=== PATIENT | female | born 1990 ===

== ENCOUNTER 2019-08-26 05:53 | Inpatient (IN) | payer MEDICAID ==
[~2019-08-26] VITALS: Ht 170.2 cm; Wt 68.0 kg
[2019-08-26] MEDS ORDERED: Acetaminophen 500mg (ES) tab ORAL ONE (06:15)
--- NOTE | 2019-08-26 06:17 | Emergency Room Report ---
History of Present Illness General Chief Complaint: Flu Like Symptoms Source: Patient Present Illness HPI 29-year-old female with no past medical history. She presents with chief complaint of fever, abdominal pain, sore throat, nausea. Onset for the last 2 days. Fever was very high to the point that she became delirious. Nausea but no vomiting. She is generalized body pain. No trauma. No cough. Has not taken anything for this. She had a previous appendectomy Allergies: Coded Allergies: No Known Allergies (Unverified , 08/26/19) Patient History Past Medical History: none, see triage record, old chart reviewed Past Surgical History: appy Pertinent Family History: none Social History: Denies: smoking Last Menstrual Period: 08/10/19 Now: No Immunizations: other Reviewed Nursing Documentation: PMH: Agreed; PSxH: Agreed Nursing Documentation-PMH Past Medical History: No Stated History Review of Systems Constitutional: Reports: fever, malaise, weakness Eye: Denies: eye pain, blurred vision ENT: Denies: ear pain, nose congestion, throat swelling Respiratory: Denies: cough, shortness of breath Cardiovascular: Denies: chest pain, palpitations Gastrointestinal: Reports: abdominal pain, nausea; Denies: diarrhea, vomiting Musculoskeletal: Denies: back pain, joint pain Skin: Denies: rash Neurological: Denies: headache, numbness Endocrine: Denies: increased thirst, increased urine Hematologic/Lymphatic: Denies: easy bruising All Other Systems: negative except mentioned in HPI Physical Exam Vital Signs Date Time Temp Pulse Resp B/P (MAP) Pulse Ox O2 Delivery O2 Flow Rate FiO2 08/26/19 05:47 98.2 95 16 87/58 (68) 100 Room Air Vitals with hypotension Sp02 EP Interpretation: reviewed, normal General Appearance: well appearing, no apparent distress, alert Head: normocephalic, atraumatic Eyes: bilateral eye PERRL, bilateral eye EOMI ENT: hearing grossly normal, normal pharynx Neck: full range of motion, supple, no meningismus Respiratory: chest non-tender, lungs clear, normal breath sounds Cardiovascular #1: regular rate, rhythm, no murmur Gastrointestinal: normal bowel sounds, no mass, no organomegaly, no bruit, non- distended, tenderness - Right lower quadrant Musculoskeletal: back normal, gait/station normal, normal range of motion Psychiatric: mood/affect normal Medical Decision Making Diagnostic Impression: Primary Impression: Influenza-like symptoms ER Course This patient presents with flulike illness. Labs and IV fluids given. Because of abdominal pain, will get CT scan. I will send this patient out to Dr. Carrero for final disposition. Last Vital Signs Date Time Temp Pulse Resp B/P (MAP) Pulse Ox O2 Delivery O2 Flow Rate FiO2 08/26/19 05:47 98.2 95 16 87/58 (68) 100 Room Air Status: improved Rigo Becerra MD Aug 26, 2019 06:17
[2019-08-26] MEDS ORDERED: Ketorolac 30mg Inj IV ONE (06:30)
--- NOTE | 2019-08-26 06:30 | NUR ---
ED Nurse Note: pt presents to ED via EMS arrival for flu-like symptoms. pt reports feeling nauseous for 2 days. she also reports feeling hot to touch then cold. pt also reports "hallucinating from the fever." pt rates her body pain a 5/10 that is diffuse over her entire body that she describes as "muscle pains." pt denies getting a flu shot this year and has never had this happen to her in the past
[2019-08-26 06:35] LABS: HEMATOCRIT 35.3 % (37.0-47.0); HEMOGLOBIN 12.3 G/DL (12.0-16.0); MEAN CORPUSCULAR VOLUME 92 FL (80-99); PLATELET COUNT 125 K/UL (150-450); RED BLOOD COUNT 3.85 M/UL (4.20-5.40); RED CELL DISTRIBUTION WIDTH 10.7 % (11.6-14.8); WHITE BLOOD COUNT 7.8 K/UL (4.8-10.8)
[2019-08-26 06:41] VITALS: BP 87/58
[2019-08-26 06:43] LABS: APPEARANCE,URINE CLEAR; BILIRUBIN, URINE NEGATIVE (NEGATIVE); COLOR,URINE YELLOW; GLUCOSE, URINE (UA) NEGATIVE (NEGATIVE); KETONES,URINE NEGATIVE (NEGATIVE); LEUKOCYTE ESTERASE ,URINE NEGATIVE (NEGATIVE); NITRITE,URINE NEGATIVE (NEGATIVE); PH,URINE 7 (4.5-8.0); PROTEIN,URINE NEGATIVE (NEGATIVE); UROBILINOGEN,URINE NORMAL MG/DL (0.0-1.0)
--- NOTE | 2019-08-26 06:57 | NUR ---
ED Nurse Note: pt being transported to CT via wheelchair. pt is stable and does not appear to be in any distress at this moment. BP is 91/47, pt was transported with the 2 L of NS
[2019-08-26 07:06] LABS: ALANINE AMINOTRANSFERASE 25 U/L (12-78); ALBUMIN 3.6 G/DL (3.4-5.0); ALBUMIN/GLOBULIN RATIO 1.6 (1.0-2.7); ALKALINE PHOSPHATASE 44 U/L (46-116); ANION GAP 8 mmol/L (5-15); ASPARTATE AMINO TRANSFERASE 18 U/L (15-37); BILIRUBIN,TOTAL 0.3 MG/DL (0.2-1.0); BLOOD UREA NITROGEN 17 mg/dL (7-18); CALCIUM 8.2 MG/DL (8.5-10.1); CARBON DIOXIDE 26 MMOL/L (21-32); CHLORIDE 103 MMOL/L (98-107); CREATININE 0.6 MG/DL (0.55-1.30); POTASSIUM 3.8 MMOL/L (3.5-5.1); SODIUM 137 MMOL/L (136-145)
--- NOTE | 2019-08-26 07:11 | NUR ---
HAND-OFF: Report given to Kristopher Giordano RN. pt is still in CT
--- NOTE | 2019-08-26 07:16 | NUR ---
ED Nurse Note: pt is in CT.
--- NOTE | 2019-08-26 07:25 | NUR ---
ED Nurse Note: pt came back from CT in stable condition.
--- NOTE | 2019-08-26 07:35 | NUR ---
ED Nurse Note: pt ambulated to bathroom with steady gait.
--- NOTE | 2019-08-26 07:39 | NUR ---
ED Nurse Note: BP 78/52mmHg noted. ERMD made aware. pt still geting iv fluid. will continued to monitor.
[2019-08-26 07:43] VITALS: BP 78/52
--- NOTE | 2019-08-26 08:05 | Diagnostic Imaging Report ---
Indication: Abdominal pain Technique: Continuous helical transaxial imaging of the abdomen and pelvis was obtained from the lung bases to the pubic symphysis. No intravenous contrast was administered. Coronal 2-D reformats were also obtained. Automatic Exposure Control was utilized. Total Dose length Product (DLP): 921.[address] Dose Index Volume (CTDIvol): 15.8 mGy Comparison: none Findings: Mild fluid filled and distended loops of small bowel noted throughout the abdomen. Findings could be due to ileus/enteritis. Bowel obstruction is not excluded. Study is limited as obtained on without IV and oral contrast material. Suggest repeating the exam or obtaining small bowel series. Correlate clinically. There could be an internal hernia present on the left side as there is some mass effect and swirling of the mesenteric vessels. There is no free fluid. There is no pneumatosis or free air. Moderate feces noted within the colon. Urinary bladder is mildly distended. No hydronephrosis seen. Solid organ evaluation limited on this study. Gallbladder is unremarkable. The lung bases are clear. Bilateral breast implants noted. IMPRESSION: Mild distention of small bowel noted within the abdomen. Consider enteritis or ileus. Bowel obstruction not excluded. Question of an internal hernia in the left side of the abdomen as described above. Current study limited in evaluation due to the nonadministration of IV and oral contrast material. [facility] has communicated the preliminary results to the Emergency Department. Their findings are largely concordant with this report. The CT scanner at [facility] is accredited by the [employer] and the scans are performed using dose optimization techniques as appropriate to a performed exam including Automatic Exposure control.
--- NOTE | 2019-08-26 09:34 | NUR ---
ED Nurse Note: ERMD at bedside discussing further plans.
[2019-08-26 09:50] VITALS: BP 87/54
--- NOTE | 2019-08-26 09:53 | Emergency Room Report ---
Physical Exam Please see addenda note attached to Dr. Becerra's note. Vital Signs Date Time Temp Pulse Resp B/P (MAP) Pulse Ox O2 Delivery O2 Flow Rate FiO2 08/26/19 05:47 98.2 95 16 87/58 (68) 100 Room Air Sp02 EP Interpretation: reviewed, normal General Appearance: well appearing, no apparent distress, alert, GCS 15, non- toxic Head: normocephalic, atraumatic Eyes: bilateral eye normal inspection, bilateral eye PERRL, bilateral eye EOMI ENT: moist mucus membranes Neck: full range of motion, supple Respiratory: lungs clear, normal breath sounds Cardiovascular #1: regular rate, rhythm, no edema Cardiovascular #2: 2+ radial (R) Gastrointestinal: normal bowel sounds, soft, no mass, non-distended, no guarding, no rebound, tenderness - minimal Genitourinary: no CVA tenderness Musculoskeletal: back normal, digits/nails normal, gait/station normal, normal range of motion Neurologic: alert, oriented x3, grossly normal Psychiatric: mood/affect normal Skin: no rash, warm/dry Medical Decision Making Diagnostic Impression: Primary Impression: Small bowel obstruction Additional Impressions: Constipation Qualified Codes: K59.00 - Constipation, unspecified Hypotension Qualified Codes: I95.9 - Hypotension, unspecified ER Course Patient signed out to me by Dr. Becerra pending labs and CT. Nonsurgical exam. Concern over intermittent hypotension. Patient ambulatory without dizziness. She is not tachycardic. Labs with normal white count. Left shift. CMP normal. TSH normal. Patient reports that several years ago she was evaluated for abdominal pain and told she had some mesenteric abnormality. Surgery was offered for diagnostic purposes. At that time she declined. No definitive diagnosis was made. Patient with continued intermittent hypotension however clinically stable during these episodes. No dizziness or weakness. In addition she was complaining about nausea and Zofran was repeated along with Pepcid. CT with question of small bowel obstruction. Also increased stool load. Patient reports long-standing history of intermittent constipation. Due to the CT scan findings and hypotension patient admitted for observation. Abdomen still soft. Patient evaluated by Dr. Sweeney. Surgical consultation requested of Dr. Gomez. Complaints of continued nausea and some increase in abdominal pain. Reglan and Benadryl ordered. Laboratory Tests Test 08/26/19 06:16 White Blood Count 7.8 K/UL (4.8-10.8) Red Blood Count 3.85 M/UL (4.20-5.40) L Hemoglobin 12.3 G/DL (12.0-16.0) Hematocrit 35.3 % (37.0-47.0) L Mean Corpuscular Volume 92 FL (80-99) Mean Corpuscular Hemoglobin 32.0 PG (27.0-31.0) H Mean Corpuscular Hemoglobin Concent 34.9 G/DL (32.0-36.0) Red Cell Distribution Width 10.7 % (11.6-14.8) L Platelet Count 125 K/UL (150-450) L Mean Platelet Volume 9.5 FL (6.5-10.1) Neutrophils (%) (Auto) % (45.0-75.0) Lymphocytes (%) (Auto) % (20.0-45.0) Monocytes (%) (Auto) % (1.0-10.0) Eosinophils (%) (Auto) % (0.0-3.0) Basophils (%) (Auto) % (0.0-2.0) Differential Total Cells Counted 100 Neutrophils % (Manual) 90 % (45-75) H Lymphocytes % (Manual) 6 % (20-45) L Monocytes % (Manual) 4 % (1-10) Eosinophils % (Manual) 0 % (0-3) Basophils % (Manual) 0 % (0-2) Band Neutrophils 0 % (0-8) Platelet Estimate Decreased L Platelet Morphology Normal Red Blood Cell Morphology Normal Urine Color Yellow Urine Appearance Clear Urine pH 7 (4.5-8.0) Urine Specific [place] 1.005 (1.005-1.035) Urine Protein Negative (NEGATIVE) Urine Glucose (UA) Negative (NEGATIVE) Urine Ketones Negative (NEGATIVE) Urine Blood Negative (NEGATIVE) Urine Nitrite Negative (NEGATIVE) Urine Bilirubin Negative (NEGATIVE) Urine Urobilinogen Normal MG/DL (0.0-1.0) Urine Leukocyte Esterase Negative (NEGATIVE) Urine HCG, Qualitative Negative (NEGATIVE) Sodium Level 137 MMOL/L (136-145) Potassium Level 3.8 MMOL/L (3.5-5.1) Chloride Level 103 MMOL/L (98-107) Carbon Dioxide Level 26 MMOL/L (21-32) Anion Gap 8 mmol/L (5-15) Blood Urea Nitrogen 17 mg/dL (7-18) Creatinine 0.6 MG/DL (0.55-1.30) Estimate Glomerular Filtration Rate > 60 mL/min (>60) Glucose Level 104 MG/DL (74-106) Calcium Level 8.2 MG/DL (8.5-10.1) L Total Bilirubin 0.3 MG/DL (0.2-1.0) Aspartate Amino Transferase (AST) 18 U/L (15-37) Alanine Aminotransferase (ALT) 25 U/L (12-78) Alkaline Phosphatase 44 U/L (46-116) L Total Protein 5.9 G/DL (6.4-8.2) L Albumin 3.6 G/DL (3.4-5.0) Globulin 2.3 g/dL Albumin/Globulin Ratio 1.6 (1.0-2.7) Thyroid Stimulating Hormone (TSH) 2.526 uiU/mL (0.358-3.740) Microbiology Date/Time Source Procedure Growth Status 08/26/19 06:16 Nasal Nares - Final Complete 08/26/19 06:16 Nasal Nares - Final Complete EKG Diagnostic Results Rate: normal Rhythm: NSR ST Segments: no acute changes Rhythm Strip Diag. Results EP Interpretation: yes Rhythm: NSR, no PVC's, no ectopy CT/MRI/US Diagnostic Results CT/MRI/US Diagnostic Results : Imaging Test Ordered: Abdomen and pelvis Impression Findings: Mild fluid filled and distended loops of small bowel noted throughout the abdomen. Findings could be due to ileus/enteritis. Bowel obstruction is not excluded. Study is limited as obtained on without IV and oral contrast material. Suggest repeating the exam or obtaining small bowel series. Correlate clinically. There could be an internal hernia present on the left side as there is some mass effect and swirling of the mesenteric vessels. There is no free fluid. There is no pneumatosis or free air. Moderate feces noted within the colon. Urinary bladder is mildly distended. No hydronephrosis seen. Solid organ evaluation limited on this study. Gallbladder is unremarkable. The lung bases are clear. Bilateral breast implants noted. IMPRESSION: Mild distention of small bowel noted within the abdomen. Consider enteritis or ileus.Bowel obstruction not excluded. Question of an internal hernia in the left side of the abdomen as described above. Last Vital Signs Date Time Temp Pulse Resp B/P (MAP) Pulse Ox O2 Delivery O2 Flow Rate FiO2 08/26/19 14:46 97.6 70 19 79/49 100 Room Air Status: improved Disposition: PLACE IN OBSERVATION Condition: Serious Referrals: NOT CHOSEN IPA/,REFERRING (PCP) Herber Carrero MD Aug 26, 2019 09:53
--- NOTE | 2019-08-26 10:23 | NUR ---
ED Nurse Note: pt stated it is ok to release her information to Tracy [phone], aunt. and DUSTIN [phone], Boyfriend.
[2019-08-26] MEDS ORDERED: NKM (10:34)
--- NOTE | 2019-08-26 10:44 | NUR ---
ED Nurse Note: BP 77/52mmHg reported to ERMD.
--- NOTE | 2019-08-26 13:31 | NUR ---
ED Nurse Note: pt c/o nausea and abdominal pain 05/08. reported to ERMD.
[2019-08-26 14:15] VITALS: BP 81/50
[2019-08-26] MEDS ORDERED: Metoclopramide 10mg/2ml Inj IVP ONE (14:15)
[2019-08-26] MEDS ORDERED: DiphenhydrAMINE 50mg/ml Inj IVP ONE (14:15)
--- NOTE | 2019-08-26 14:45 | NUR ---
ED Nurse Note: pt left unit with 1 phlebotomy services technician and 1 RN in stable condition. ERMD assessed pt right before pt left. pt stable but still low blood pressure. 79/54mmHg. KAYLEIGHD made aware.
--- NOTE | 2019-08-26 15:00 | NUR ---
NURSE NOTES: received patient report from marcin londono from er. per report patient started to ba nauseus, vomitting and flu like symptoms X days.patient came in via gurney. landcare officer initiated. vs taken and recorded. afebrile.patient is noted to be AOX4. patient denies pain as of this time. per patient comes and goes. pain is at the lower abdomen.skin is intact.belongings checked and signed by er nurse and myself. under the care of dr waite. will call md for admission orders.
--- NOTE | 2019-08-26 15:00 | NUR ---
ED Nurse Note: REPORT GIVEN TO LEON CHILDERS
[2019-08-26 15:34] VITALS: BP 77/50
--- NOTE | 2019-08-26 17:49 | Consultation ---
History of Present Illness General Date patient seen: Aug 26, 2019 Reason for Hospitalization: Flu Like Symptoms Present Illness HPI This is a 29-year-old female who presented to the emergency department at [facility] complaining of worsening abdominal pain and intermittent nausea. Patient furthermore complaining of flulike symptoms. Generalized weakness bone pains. Patient states that approximately 2 years ago she was hospitalized in [place] for abdominal discomfort after being on a plane flight. States that time they diagnosed her with a possible questionable mesenteric hernia and was planned for possible surgery but did not have it. States since she is intermittently had abdominal discomfort and intermittent nausea over the years. States that approximately 1 day ago began to feel abdominal discomfort cramping pain 10 out of 10 with intermittent nausea but no emesis and decided come in for evaluation. Passing flatus as of yesterday. Last bowel movement a few days ago and states that she suffers from chronic constipation and uses Dulcolax suppositories often to have a bowel movement every few days. CT with possible ileus versus potential bowel obstruction. Surgery called to evaluate and assist with care. Patient seen, patient evaluate , chart reviewed subjective fevers Allergies: Coded Allergies: No Known Allergies (Unverified , 08/26/19) Medication History Scheduled No Known Medications* (NKM - No Known Medications*), 0 ., (Reported) Patient History History Provided By: Patient Healthcare decision maker Resuscitation status Full Code Advanced Directive on File No Past Medical/Surgical History Past Medical/Surgical History: (1) Influenza-like symptoms (2) Constipation (3) Small bowel obstruction (4) Hypotension Review of Systems Review of Symptoms General ROS: no weight loss ++fever Psychological ROS: no depression or mood changes, no memory loss Ophthalmic ROS: no visual changes or eye irritation ENT ROS: no nasal congestion, hearing loss, dizziness Allergy and Immunology ROS: no allergic symptoms or urticaria Hematological and Lymphatic ROS: no swollen glands, unusual bleeding or bruising Endocrine ROS: no polyuria, polydipsia, weight changes, temperature intolerance Respiratory ROS: no cough, shortness of breath, or wheezing Cardiovascular ROS: no chest pain or dyspnea on exertion Gastrointestinal ROS: abdominal pain, bright red blood in stool. Musculoskeletal ROS: no myalgias or arthralgias Neurological ROS: no TIA or stroke symptoms Dermatological ROS: no new or changing skin lesions, rashes or pruritis Physical Exam Physical Exam General appearance: alert, cooperative, no distress, appears stated age Head: Normocephalic, without obvious abnormality, atraumatic Eyes: conjunctivae/corneas clear. PERRL, EOM's intact. Fundi benign Throat: Lips, mucosa, and tongue normal. Teeth and gums normal Neck: supple, symmetrical, trachea midline, no adenopathy, thyroid: not enlarged, symmetric, no tenderness/mass/nodules, no carotid bruit and no JVD Lungs: clear to auscultation bilaterally Heart: regular rate and rhythm, S1, S2 normal, no murmur, click, rub or gallop Abdomen: soft, non-tender. Bowel sounds normal. No masses, no organomegaly prior right lower quadrant open appendectomy McBurney's's incision well-healed Extremities: extremities normal, atraumatic, no cyanosis or edema Pulses: 2+ and symmetric Skin: Skin color, texture, turgor normal. No rashes or lesions Neurologic: Grossly normal Last 24 Hour Vital Signs Date Time Temp Pulse Resp B/P (MAP) Pulse Ox O2 Delivery O2 Flow Rate FiO2 08/26/19 16:00 69 08/26/19 16:00 Room Air 08/26/19 15:34 97.7 66 24 77/50 (59) 100 08/26/19 15:10 Room Air 08/26/19 14:46 97.6 70 19 79/49 100 Room Air 08/26/19 14:15 98.2 69 19 81/50 100 Room Air 08/26/19 09:50 98.0 68 17 87/54 100 Room Air 08/26/19 07:43 97.9 81 17 78/52 98 Room Air 08/26/19 07:10 99.2 08/26/19 07:10 99.2 08/26/19 06:41 99.2 16 87/58 100 Room Air 08/26/19 06:10 95 16 Room Air 08/26/19 05:47 98.2 95 16 87/58 (68) 100 Room Air Intake and Output 08/25/19 08/26/19 19:00 07:00 Intake Total 100 ml Balance 100 ml Intake Oral 100 ml Laboratory Tests Test 08/26/19 06:16 White Blood Count 7.8 K/UL (4.8-10.8) Red Blood Count 3.85 M/UL (4.20-5.40) L Hemoglobin 12.3 G/DL (12.0-16.0) Hematocrit 35.3 % (37.0-47.0) L Mean Corpuscular Volume 92 FL (80-99) Mean Corpuscular Hemoglobin 32.0 PG (27.0-31.0) H Mean Corpuscular Hemoglobin Concent 34.9 G/DL (32.0-36.0) Red Cell Distribution Width 10.7 % (11.6-14.8) L Platelet Count 125 K/UL (150-450) L Mean Platelet Volume 9.5 FL (6.5-10.1) Neutrophils (%) (Auto) % (45.0-75.0) Lymphocytes (%) (Auto) % (20.0-45.0) Monocytes (%) (Auto) % (1.0-10.0) Eosinophils (%) (Auto) % (0.0-3.0) Basophils (%) (Auto) % (0.0-2.0) Differential Total Cells Counted 100 Neutrophils % (Manual) 90 % (45-75) H Lymphocytes % (Manual) 6 % (20-45) L Monocytes % (Manual) 4 % (1-10) Eosinophils % (Manual) 0 % (0-3) Basophils % (Manual) 0 % (0-2) Band Neutrophils 0 % (0-8) Platelet Estimate Decreased L Platelet Morphology Normal Red Blood Cell Morphology Normal Urine Color Yellow Urine Appearance Clear Urine pH 7 (4.5-8.0) Urine Specific [place] 1.005 (1.005-1.035) Urine Protein Negative (NEGATIVE) Urine Glucose (UA) Negative (NEGATIVE) Urine Ketones Negative (NEGATIVE) Urine Blood Negative (NEGATIVE) Urine Nitrite Negative (NEGATIVE) Urine Bilirubin Negative (NEGATIVE) Urine Urobilinogen Normal MG/DL (0.0-1.0) Urine Leukocyte Esterase Negative (NEGATIVE) Urine HCG, Qualitative Negative (NEGATIVE) Sodium Level 137 MMOL/L (136-145) Potassium Level 3.8 MMOL/L (3.5-5.1) Chloride Level 103 MMOL/L (98-107) Carbon Dioxide Level 26 MMOL/L (21-32) Anion Gap 8 mmol/L (5-15) Blood Urea Nitrogen 17 mg/dL (7-18) Creatinine 0.6 MG/DL (0.55-1.30) Estimat Glomerular Filtration Rate > 60 mL/min (>60) Glucose Level 104 MG/DL (74-106) Calcium Level 8.2 MG/DL (8.5-10.1) L Total Bilirubin 0.3 MG/DL (0.2-1.0) Aspartate Amino Transf (AST/SGOT) 18 U/L (15-37) Alanine Aminotransferase (ALT/SGPT) 25 U/L (12-78) Alkaline Phosphatase 44 U/L (46-116) L Total Protein 5.9 G/DL (6.4-8.2) L Albumin 3.6 G/DL (3.4-5.0) Globulin 2.3 g/dL Albumin/Globulin Ratio 1.6 (1.0-2.7) Thyroid Stimulating Hormone (TSH) 2.526 uiU/mL (0.358-3.740) Microbiology Date/Time Source Procedure Growth Status 08/26/19 06:16 Nasal Nares - Final Complete 08/26/19 06:16 Nasal Nares - Final Complete Height (Feet): 5 Height (Inches): 7.00 Weight (Pounds): 150 Medications Current Medications Medications (Trade) Dose Ordered Sig/Cl Route PRN Reason Start Time Stop Time Status Last Admin Dose Admin Ondansetron HCl (Zofran) 4 mg Q6H PRN IVP Nausea & Vomiting 08/26/19 16:00 09/25/19 15:59 Sodium Chloride 1,000 ml @ 125 mls/hr Q8H IV 08/26/19 16:00 09/25/19 15:59 08/26/19 16:09 Assessment/Plan Problem List: (1) Small bowel obstruction Assessment & Plan: Mild fluid filled and distended loops of small bowel noted throughout the abdomen. Findings could be due to ileus/enteritis. Bowel obstruction is not excluded. Study is limited as obtained on without IV and oral contrast material. Suggest repeating the exam or obtaining small bowel series. Correlate clinically. There could be an internal hernia present on the left side as there is some mass effect and swirling of the mesenteric vessels. There is no free fluid. There is no pneumatosis or free air. Moderate feces noted within the colon. Urinary bladder is mildly distended. No hydronephrosis seen. Solid organ evaluation limited on this study. Gallbladder is unremarkable. The lung bases are clear. Bilateral breast implants noted. 29-year-old female with abdominal pain nausea and above CT findings. Patient with interesting history of potential mesenteric hernia diagnosed 2 years ago [place] but not have surgery. States that she is been dealing with intermittent abdominal discomfort. Over the past day significantly worse and came in for evaluation. No leukocytosis, shift, normal electrolytes. Abdominal exam benign. Given her history recommend upper GI small bowel series with contrast to evaluate bowel transit dynamically A.m. labs We will follow with recommendations Thank you for allowing me to participate in patient's care ICD Codes: K56.609 - Unspecified intestinal obstruction, unspecified as to partial versus complete obstruction SNOMED: 688920904 (2) Constipation ICD Codes: K59.00 - Constipation, unspecified SNOMED: [id number] Torsten Gomez Aug 26, 2019 17:49
--- NOTE | 2019-08-26 18:54 | NUR ---
NURSE NOTES: patient signed ama.per family member, they want to go to [facility] instead. risks of signing ama were explained but still patient and significant other insisted on signing.. property assessment monitor removed. IV line removed and bleeding was stopped. dr cordova and dr waite made aware.
--- NOTE | 2019-08-26 21:15 | History and Physical Report ---
DATE OF ADMISSION: 08/26/2019 REASON FOR ADMISSION: Abdominal pain. HISTORY OF PRESENT ILLNESS: This is a 29-year-old female presented with nausea, vomiting and abdominal pain of several days duration associated with some flu-like symptoms including aches, pain, and general malaise. The patient notes a similar episode approximately 2 years ago when she was in [place] after being on an airplane. She was diagnosed there with a mesenteric hernia and recommended for surgery but elected to be managed medically. Since that time, she has had intermittent episodes of abdominal pain and nausea but not of this severity. With cramping pain, she is describing started about a day ago. She has been passing gas but her last bowel movement was a couple of days previously although she has chronic constipation and uses suppositories on a regular basis. In the emergency room, she was noted to have a low blood pressure in the range of 75 systolic but the patient states her usual blood pressure is around 100 systolic, not more. She had a CAT scan of the abdomen that revealed possible ileus and hospitalization has been initiated. MEDICATIONS: None. ALLERGIES: None known. PAST MEDICAL HISTORY: Status post open appendectomy otherwise unremarkable. FAMILY HISTORY: Noncontributory. SOCIAL HISTORY: Denies smoking, alcohol, or substance abuse. REVIEW OF SYSTEMS: The patient's last menstrual cycle was approximately 2 weeks ago and was described as normal per her usual symptoms. A 10-point review of systems performed. All systems negative other than noted above. PHYSICAL EXAMINATION: GENERAL: She is awake and alert although somewhat sleepy stating she did not sleep much last night. She is nonorthostatic and is able to ambulate to the bathroom by herself. VITAL SIGNS: Blood pressure 77/50, pulse 66, respiratory rate 24, afebrile. Throughout the morning, her blood pressure has been in the range of 75 to 90 systolic. Oxygen saturation on room air 100%. HEENT: Conjunctivae pink. Oropharynx clear. Mucous membranes moist. NECK: Supple. Jugular venous pressure normal. LUNGS: Clear. CARDIAC: Regular rhythm and rate. Normal S1, S2 with no murmur, rub, or gallop. ABDOMEN: Soft, nontender. Bowel sounds are normal. There is no organomegaly. There is prior surgical site on the right lower quadrant that are healed. EXTREMITIES: Without edema. There is good perfusion of the digits. NEUROLOGIC: Nonfocal. LABORATORY AND DIAGNOSTIC DATA: White count 7.8, hemoglobin 12.3, platelet count normal. Chemistry panel within normal limits. Calcium is 8.2. Albumin is 3.6, alkaline phosphatase 44, AST and ALT 18 and 25 respectively. TSH is 2.5. Urinalysis with no active sediment. Urine beta-HCG negative. IMPRESSION: The patient appears nontoxic although with the low range blood pressure that reportedly is not from her baseline. As she does have abdominal pain with nausea and an abnormal CT scan with prior history of potential mesenteric hernia. RECOMMENDATIONS: 1. Clear liquid diet. 2. IV fluid hydration. 3. Urine toxicology screen. 4. Serial laboratories, serial electrolytes, and CBC. 5. Surgical evaluation. 6. We would follow up imaging studies of the abdomen. Herber Sweeney M.D. DR: Diego JOB#: [id number] CC:
--- NOTE | 2019-08-27 14:45 | Discharge Summary ---
Discharge Summary Discharge Summary _ DATE OF ADMISSION: 08/26/2019 DATE OF DISCHARGE: 08/27/2019 Patient left AGAINST MEDICAL ADVICE REASON FOR ADMISSION: , 29 years old female with no significant past medical history , presented with chief complaint of fever , abdominal pain, sore throat and nausea. Symptoms started 2 days. Per patient, fever was so high to the point that she became delirious. Patient reported nausea but no vomiting. Patient reported generalized body pain. No cough . Last menstrual period 08/10. Upon evaluation patient was afebrile , blood pressure was on the low side- 87/ 58. Patient apparently was taking appetite suppressant from [place], but stopped taking it because there were some reports of thyroid cancer associated with it. Patient reported intermittent abdominal pain. She denied dysuria. According to patient , she was evaluated for abdominal pain few years ago and was told that she had some mesenteric abnormality. Surgery was suggested for diagnostic purposes , but at that time she declined any surgery. No definite diagnosis was made. Blood pressure improved with IV hydration. Vital signs remained stable. Laboratory work-up revealed no leukocytosis, stable hemoglobin and hematocrit , platelet count 125. Stable electrolytes and renal parameters . TSH within normal limits. Urinalysis was unremarkable. Influenza swab was negative for influenza A and B antigen. CT of the abdomen and pelvis revealed mild distention of small bowel , consider enteritis or ileus. Bowel obstruction was not excluded. Patient subsequently admitted to [facility] for further management. CONSULTANTS: surgery Dr. Gomez [facility]SE: Patient admitted to [facility]. Patient started on clear liquid diet and IV hydration. Urine toxicology screen was ordered. Surgical evaluation was requested. Pain management was addressed. Antiemetic provided as needed. Surgeon seen and evaluated patient and recommended upper GI small bowel series with contrast to evaluate bowel transit dynamically. GI prophylaxis provided. The risks and consequences of signing AGAINST MEDICAL ADVICE were discussed with patient in detail. Patient verbalized understanding, nevertheless signed AMA form and left. Patient decided to leave AGAINST MEDICAL ADVICE and go to [facility]. The risks and consequences of signing AGAINST MEDICAL ADVICE were discussed with patient in detail. Patient verbalized understanding, nevertheless signed AMA form and left. . FINAL DIAGNOSES: Hypotension Possible small bowel obstruction Constipation Possible mesenteric abnormality I have been assigned to dictate discharge summary for this account. I was not involved in the patient's management. Nina Pool NP Aug 27, 2019 14:45
--- NOTE | 2019-08-27 16:47 | Cardiology Report ---
APPROVED REPORT EKG Measurement Heart [id number] Normal sinus rhythm Normal ECG
--- NOTE | 2019-08-28 10:11 | NUR ---
*-* INSURANCE *-* ALL CLINICALS HAVE BEEN FAXED TO"[facility] REF# [id number] F: [phone] P: [phone]
== END 2019-08-26 19:00 | disposition left against medical advice (07) | DRG 247 ==
LOC: EDBD 05:53 → EMR 07:23 → EDBEDREQ 08:57 → EDBEDREQSVC 08:57 → 2W 10:15 → EDBEDREQ 11:37 → EDBEDREQSVC 12:06 → EDBEDREQ 14:04
DX: K56.609 Unspecified intestinal obstruction, unspecified as to partial versus complete obstruction (principal); I95.9 Hypotension, unspecified; K59.00 Constipation, unspecified
CPT/HCPCS: 36415; 74176; 80053; 81003; 81025; 84443; 85007; 85025; 86710; 93005; 96361; 96374; 96375; 96376; 99285; J2405; J2765; J7030